=== PATIENT | female | born 1935 | race Caucasian/White ===

== ENCOUNTER 2018-05-26 13:15 | Inpatient (IN) | payer OTHER ==
[~2018-05-26] VITALS: Ht 165.1 cm; Wt 102.1 kg
[2018-05-26] MEDS ORDERED: PROTONIX40 M1 (13:45)
[2018-05-26] MEDS ORDERED: PANADOL EXTRA500 MG (13:45)
== END 2018-05-27 00:42 | disposition expired | DRG 315 ==
LOC: ER 13:15 → ICU-2 22:47
PROC: 4A033R1 Measurement of Arterial Saturation, Peripheral, Percutaneous Approach (ICD-10-PCS; principal; 2018-05-26)
PROC: BR29ZZZ Computerized Tomography (CT Scan) of Lumbar Spine (ICD-10-PCS; 2018-05-26)
DX: I95.89 Other hypotension (principal); N17.8 Other acute kidney failure; E87.2 Acidosis; N39.0 Urinary tract infection, site not specified; R60.1 Generalized edema; I48.0 Paroxysmal atrial fibrillation; E03.8 Other specified hypothyroidism; Z66 Do not resuscitate; K25.7 Chronic gastric ulcer without hemorrhage or perforation; I12.9 Hypertensive chronic kidney disease with stage 1 through stage 4 chronic kidney disease, or unspecified chronic kidney disease; N18.1 Chronic kidney disease, stage 1; B96.1 Klebsiella pneumoniae [K. pneumoniae] as the cause of diseases classified elsewhere; B96.5 Pseudomonas (aeruginosa) (mallei) (pseudomallei) as the cause of diseases classified elsewhere; B96.29 Other Escherichia coli [E. coli] as the cause of diseases classified elsewhere